=== PATIENT | female | born 1965 | race Caucasian/White ===

== ENCOUNTER → 2017-07-15 | Outpatient (CLI) | payer BC ==
--- NOTE | 2017-07-20 07:41 | MM ---
Reason for exam: screening (asymptomatic). Last mammogram was performed 1 year and 7 months ago. History: Patient history of other cancer and is nulliparous. Excisional biopsy of the left breast, November 12, 2011. Physical Findings: A clinical breast exam by your physician is recommended on an annual basis and results should be correlated with mammographic findings. MG Screening Mammo w CAD Bilateral CC, MLO, and XCCL view(s) were taken. Prior study comparison: November 30, 2015, left breast MG work up mamm w CAD LT. November 27, 2015, bilateral MG screening mammo w CAD. October 08, 2011, CAD bilateral diagnostic mammogram. The breast tissue is extremely dense which could obscure a lesion on mammography. Finding: There are stable typically benign punctate, round calcifications in both breasts with no suspicious groups. No suspicious abnormality. No significant changes in finding since November 30, 2015, November 27, 2015, and October 08, 2011. ASSESSMENT: Benign, BI-RAD 2 RECOMMENDATION: Routine screening mammogram of both breasts in 1 year.
== END | disposition home or self-care (01) ==
LOC: RADMAMWWP 12:33
PROVIDERS: ATTEND Internal Medicine Endocrinology, Diabetes & Metabolism
DX: Z12.31 Encounter for screening mammogram for malignant neoplasm of breast (principal)

== ENCOUNTER 2018-06-22 18:45 | Emergency (ER) | payer BC ==
[2018-06-22 18:52] VITALS: TEMP 98.1
[2018-06-22] MEDS ORDERED: ONDANSETRON 4 MG/2 ML VIAL IVP STA (19:14)
[2018-06-22] MEDS ORDERED: HYDROmorphone 1 MG/ML 1 ML SYRINGE IVP STA (19:14)
[2018-06-22] MEDS ORDERED: HEPARIN SODIUM,PORCINE 5,000 UNIT/ML 1 ML VIAL IV ONE (19:27)
[2018-06-22] MEDS ORDERED: HEPARIN SOD,PORK IN 0.45% NACL 25,000 UNIT in 0.45% NACL 1 500ML.BAG IV SCH (19:30)
--- NOTE | 2018-06-22 19:34 | ED ---
General Adult HPI - General Chief complaint: Extremity Problem,Nontraumatic Stated complaint: leg pain Time Seen by Provider: 06/22/18 18:50 Source: patient, EMS, RN notes reviewed Mode of arrival: EMS Limitations: no limitations - History of Present Illness Initial comments: This is a 53-year-old female who presents to the emergency department complaining of left leg pain from the knee down. Patient stated the pain started about 2 and half hours prior to arrival with sudden onset. Patient states the pain is excruciating. Patient states she recently had a cardiac cath but they one arm and they found no problem in her heart. Patient states his past medical history of lupus been no previous history of clots. Patient denies any shortness of breath chest pain or difficulty breathing. Patient denies any recent fever chills. Patient denies any lightheadedness dizziness. Patient denies headache patient denies numbness weakness. Patient denies abdominal pain. - Related Data Home Medications Medication Instructions Recorded Confirmed ALPRAZolam [Xanax] 0.25 mg PO HS PRN 06/22/18 06/22/18 Albuterol Inhaler [Ventolin Hfa 2 puff INHALATION RT-Q6H PRN 06/22/18 06/22/18 Inhaler] Aspirin EC [Ecotrin] 325 mg PO DAILY 06/22/18 06/22/18 Atenolol 100 mg PO DAILY 06/22/18 06/22/18 Calcitriol [Rocaltrol] 0.25 mcg PO DAILY 06/22/18 06/22/18 Furosemide [Lasix] 40 mg PO DAILY 06/22/18 06/22/18 Hydroxychloroquine Sulfate 200 mg PO BID 06/22/18 06/22/18 [Plaquenil] Nicotine 14Mg/24Hr Patch [Habitrol 1 patch TRANSDERM DAILY 06/22/18 06/22/18 14Mg/24Hr Patch] Sevelamer HCl [Renagel] 400 mg PO TID 06/22/18 06/22/18 Sodium Bicarbonate Tab 650 mg PO BID 06/22/18 06/22/18 predniSONE 10 mg PO DAILY 06/22/18 06/22/18 Allergies Allergy/AdvReac Type Severity Reaction Status Date / Time No Known Allergies Allergy Verified 06/22/18 19:43 Review of Systems ROS Statement: Those systems with pertinent positive or pertinent negative responses have been documented in the HPI. ROS Other: All systems not noted in ROS Statement are negative. Past Medical History Past Medical History: Hypertension, Myocardial Infarction ([place]), Renal Disease Additional Past Medical History / Comment(s): Defib vest, lupus History of Any Multi-Drug Resistant Organisms: None Reported Past Surgical History: Adenoidectomy, Heart Catheterization, Hysterectomy, Tonsillectomy Past Psychological History: No Psychological Hx Reported Smoking Status: Former smoker Past Alcohol Use History: None Reported Past Drug Use History: None Reported General Exam - General Exam Comments Initial Comments: GENERAL: Patient is well-developed and well-nourished. Patient is nontoxic and well- hydrated and is in moderate to severe distress. ENT: Neck is soft and supple. No significant lymphadenopathy is noted. Oropharynx is clear. Moist mucous membranes. Neck has full range of motion without eliciting any pain. EYES: The sclera were anicteric and conjunctiva were pink and moist. Extraocular movements were intact and pupils were equal round and reactive to light. Eyelids were unremarkable. PULMONARY: Unlabored respirations. Good breath sounds bilaterally. No audible rales rhonchi or wheezing was noted. CARDIOVASCULAR: There is a regular rate and rhythm without any murmurs gallops or rubs. Femoral pulses are equal bilaterally. Patient has no posterior tibial pulse and no dorsal pedis pulse ABDOMEN: Soft and nontender with normal bowel sounds. No palpable organomegaly was noted. There is no palpable pulsatile mass. SKIN: Skin is clear with no lesions or rashes and otherwise unremarkable. NEUROLOGIC: Patient is alert and oriented x3. Cranial nerves II through XII are grossly intact. Motor and sensory are also intact. Normal speech, volume and content. Symmetrical smile. MUSCULOSKELETAL: Patient's left leg from the knee down is cold pale and has no capillary refill. No pulses can be palpated. LYMPHATICS: No significant lymphadenopathy is noted PSYCHIATRIC: Normal psychiatric evaluation. Limitations: no limitations Course Vital Signs 06/22/18 06/22/18 06/22/18 18:49 18:52 19:00 Temperature 98.1 F Pulse Rate 71 Respiratory 18 17 Rate Blood Pressure 133/96 133/96 133/96 O2 Sat by Pulse 99 97 98 Oximetry 06/22/18 06/22/18 06/22/18 19:10 19:20 19:30 Temperature Pulse Rate 68 Respiratory 31 H 18 16 Rate Blood Pressure 112/96 112/96 112/96 O2 Sat by Pulse 97 94 L 96 Oximetry 06/22/18 06/22/18 06/22/18 19:40 19:50 20:00 Temperature Pulse Rate 68 68 Respiratory 22 15 Rate Blood Pressure 129/58 129/58 129/58 O2 Sat by Pulse 97 Oximetry 06/22/18 20:10 Temperature Pulse Rate 67 Respiratory 20 Rate Blood Pressure 116/89 O2 Sat by Pulse 93 L Oximetry Medical Decision Making - Medical Decision Making I spoke with Dr. Persaud he wanted me to transfer the patient on at [facility]. I spoke with the vascular team from [facility] except the patient I transfer the patient [facility]. I started the patient on heparin prior to transfer. Patient also received multiple doses of pain medication. I spoke to [facility] with Dr. Ojeda for a second time to inform her of the elevated creatinine and elevated troponin. Patient was chest pain-free and had no difficulty breathing at this time. She did have a cardiac cath 9 days ago patient states the catheterization showed no occlusions. - Lab Data Result diagrams: 06/22/18 19:01 06/22/18 19:01 Lab Results 06/22/18 06/22/18 06/22/18 Range/Units 19:01 19:01 19:01 WBC 17.2 H (3.8-10.6) k/uL RBC 3.63 L (3.80-5.40) m/uL Hgb 11.9 (11.4-16.0) gm/dL Hct 37.3 (34.0-46.0) % MCV 102.6 H (80.0-100.0) fL MCH 32.8 (25.0-35.0) pg MCHC 32.0 (31.0-37.0) g/dL RDW 14.0 (11.5-15.5) % Plt Count 174 (150-450) k/uL Neutrophils % 87 % Lymphocytes % 6 % Monocytes % 6 % Eosinophils % 0 % Basophils % 0 % Neutrophils # 14.9 H (1.3-7.7) k/uL Lymphocytes # 1.1 (1.0-4.8) k/uL Monocytes # 1.0 (0-1.0) k/uL Eosinophils # 0.1 (0-0.7) k/uL Basophils # 0.0 (0-0.2) k/uL Macrocytosis Slight PT (9.0-12.0) sec INR (<1.2) APTT (22.0-30.0) sec Sodium 139 (137-145) mmol/L Potassium 4.1 (3.5-5.1) mmol/L Chloride 108 H (98-107) mmol/L Carbon Dioxide 23 (22-30) mmol/L Anion Gap 8 mmol/L BUN 55 H (7-17) mg/dL Creatinine 3.20 H (0.52-1.04) mg/dL Est GFR (CKD-EPI)AfAm 18 (>60 ml/min/1.73 sqM) Est GFR (CKD-EPI)NonAf 16 (>60 ml/min/1.73 sqM) Glucose 165 H (74-99) mg/dL Calcium 8.6 (8.4-10.2) mg/dL Magnesium 2.3 (1.6-2.3) mg/dL Total Bilirubin 0.5 (0.2-1.3) mg/dL AST 68 H (14-36) U/L ALT 116 H (9-52) U/L Alkaline Phosphatase 63 (38-126) U/L Total Creatine Kinase 509 H (30-135) U/L CK-MB (CK-2) 18.3 H (0.0-2.4) ng/mL CK-MB (CK-2) Rel Index 3.6 Troponin I 1.650 H* (0.000-0.034) ng/mL Total Protein 5.5 L (6.3-8.2) g/dL Albumin 3.1 L (3.5-5.0) g/dL 06/22/18 Range/Units 19:01 WBC (3.8-10.6) k/uL RBC (3.80-5.40) m/uL Hgb (11.4-16.0) gm/dL Hct (34.0-46.0) % MCV (80.0-100.0) fL MCH (25.0-35.0) pg MCHC (31.0-37.0) g/dL RDW (11.5-15.5) % Plt Count (150-450) k/uL Neutrophils % % Lymphocytes % % Monocytes % % Eosinophils % % Basophils % % Neutrophils # (1.3-7.7) k/uL Lymphocytes # (1.0-4.8) k/uL Monocytes # (0-1.0) k/uL Eosinophils # (0-0.7) k/uL Basophils # (0-0.2) k/uL Macrocytosis PT 10.1 (9.0-12.0) sec INR 1.0 (<1.2) APTT 18.7 L (22.0-30.0) sec Sodium (137-145) mmol/L Potassium (3.5-5.1) mmol/L Chloride (98-107) mmol/L Carbon Dioxide (22-30) mmol/L Anion Gap mmol/L BUN (7-17) mg/dL Creatinine (0.52-1.04) mg/dL Est GFR (CKD-EPI)AfAm (>60 ml/min/1.73 sqM) Est GFR (CKD-EPI)NonAf (>60 ml/min/1.73 sqM) Glucose (74-99) mg/dL Calcium (8.4-10.2) mg/dL Magnesium (1.6-2.3) mg/dL Total Bilirubin (0.2-1.3) mg/dL AST (14-36) U/L ALT (9-52) U/L Alkaline Phosphatase (38-126) U/L Total Creatine Kinase (30-135) U/L CK-MB (CK-2) (0.0-2.4) ng/mL CK-MB (CK-2) Rel Index Troponin I (0.000-0.034) ng/mL Total Protein (6.3-8.2) g/dL Albumin (3.5-5.0) g/dL Critical Care Time Critical Care Time: Yes Total Critical Care Time: 35 Disposition Clinical Impression: Arterial occlusion, lower extremity, Renal failure, Elevated troponin Disposition: OTHER INSTITUTION NOT DEFINED Referrals: Susan Tirado MD [Primary Care Provider] - 1-2 days Time of Disposition: 19:34
[2018-06-22] MEDS: HYDROmorphone 1 MG/ML 1 ML SYRINGE IVP STA ×2 (19:35→20:10)
[2018-06-22 19:48] LABS: Basophils % (A) 0 %; Eosinophils # (A) 0.1 k/uL (0-0.7); Eosinophils % (A) 0 %; HCT 37.3 % (34.0-46.0); HGB 11.9 gm/dL (11.4-16.0); Lymphocytes # (A) 1.1 k/uL (1.0-4.8); Lymphocytes % (A) 6 %; MCH 32.8 pg (25.0-35.0); MCV 102.6 fL (80.0-100.0); Macrocytosis Slight; Mean Platelet Volume 10.6; Monocytes % (A) 6 %; Neutrophils # (A) 14.9 k/uL (1.3-7.7); Neutrophils % (A) 87 %; Platelet Count 174 k/uL (150-450); RBC 3.63 m/uL (3.80-5.40); WBC 17.2 k/uL (3.8-10.6)
[2018-06-22 19:54] LABS: Albumin 3.1 g/dL (3.5-5.0); Calcium 8.6 mg/dL (8.4-10.2); Magnesium 2.3 mg/dL (1.6-2.3); Potassium 4.1 mmol/L (3.5-5.1); Total Bilirubin 0.5 mg/dL (0.2-1.3); Total Protein 5.5 g/dL (6.3-8.2)
--- NOTE | 2018-06-22 20:04 | XR ---
EXAMINATION TYPE: XR chest 2V DATE OF EXAM: 06/22/2018 COMPARISON: Chest x-ray November 20, 2010. HISTORY: Chest pain. TECHNIQUE: Frontal and lateral views of the chest are obtained. FINDINGS: There is chronic parenchymal change without suspicious focal air space opacity opacity or pneumothorax seen. New small right pleural effusion is seen. The cardiac silhouette size is enlarged with overlying external debris or fibrillator device noted. The osseous structures are intact. IMPRESSION: Chronic parenchymal change and cardiomegaly with small left pleural effusion.
[2018-06-22 20:05] LABS: Creatine Kinase MB 18.3 ng/mL (0.0-2.4)
[2018-06-22 20:08] LABS: Troponin I 1.65 ng/mL (0.000-0.034)
[2018-06-22 20:12] VITALS: BP 116/89; PULSE 67; RESP 20
[2018-06-22 20:14] LABS: Prothrombin Time 10.1 sec (9.0-12.0)
[2018-06-22 20:18] LABS: Partial Thromboplastin Time 18.7 sec (22.0-30.0)
== END 2018-06-22 20:26 | disposition other institution (70) ==
LOC: EC 18:45
DX: I70.90 Unspecified atherosclerosis (principal); N19 Unspecified kidney failure; R79.89 Other specified abnormal findings of blood chemistry; I10 Essential (primary) hypertension; I25.2 Old myocardial infarction; Z95.5 Presence of coronary angioplasty implant and graft; Z79.52 Long term (current) use of systemic steroids; Z79.82 Long term (current) use of aspirin; Z79.899 Other long term (current) drug therapy; Z87.891 Personal history of nicotine dependence
CPT/HCPCS: 99291; 96365; 96375 ×2; 96376 ×2; 36415; 93005; 80053; 82550; 82553; 83735; 84484; 85025; 85610; 85730; 71046; J1644 ×2; J2405; J1170